=== PATIENT | female | born 1950 | race Hispanic/Latino ===

== ENCOUNTER 2016-12-24 21:13 | Emergency (ER) | payer BC, MEDICARE ==
[2016-12-24] MEDS ORDERED: traMADol HCl 50 MG TAB ONE (21:36)
[2016-12-24] MEDS ORDERED: cefTRIAXone\\ROCEPHIN 1 GM VIAL ONE (21:36)
[2016-12-24] MEDS ORDERED: Lidocaine 1% 20 ML MDV ONE (21:36)
[2016-12-24] MEDS ORDERED: Ondansetron ODT 4 MG TAB ONE (21:36)
== END 2016-12-24 22:14 | disposition home or self-care (01) ==
LOC: NAV ERS 21:13
DX: N39.0 Urinary tract infection, site not specified (principal); I10 Essential (primary) hypertension; E11.9 Type 2 diabetes mellitus without complications; Z87.891 Personal history of nicotine dependence; Z79.82 Long term (current) use of aspirin; Z79.84 Long term (current) use of oral hypoglycemic drugs; Z79.2 Long term (current) use of antibiotics; Z79.899 Other long term (current) drug therapy
CPT/HCPCS: 96372; J0696; J2001; Q0162

== ENCOUNTER 2019-08-21 21:51 | Emergency (ER) | payer BC, MEDICARE ==
[~2019-08-21 21:51] MED LIST: Iopamidol 370 76% 100 ML VIAL ONE
[2019-08-21] MEDS ORDERED: Sodium Chloride 0.9% 1,000 ML ONE ×2 (22:19→23:50)
[2019-08-21] MEDS ORDERED: Ondansetron PF 4 MG/2 ML Vial ONE (22:19)
[2019-08-21] MEDS ORDERED: Morphine 4 MG/ML VIAL ONE (22:19)
[2019-08-21 22:37] LABS: %Basophils 0.1 % (0.0-1.0); %Eosinophils 0.3 % (0.0-10.0); %Lymphocytes 9.5 % (21.0-51.0); %Monocytes 0.2 % (0.0-10.0); %Neutrophils 89.9 % (42.0-75.0); Hemoglobin 12.5 g/dL (12.0-16.0); Mean Corpuscular HGB CONC 32.6 g/dL (32.0-36.0); Mean Corpuscular Hemoglobin 29.5 pg (27.0-31.0); Mean Corpuscular Volume 90.3 fL (78.0-98.0); Mean Platelet Volume 6.8 fL (7.4-10.4); Platelet Count 216 thou/uL (130-400); Red Blood Cell (RBC) Count 4.24 mill/uL (4.20-5.40)
[2019-08-21 22:59] LABS: ALT (SGPT) 13 U/L (8-55); AST (SGOT) 14 U/L (5-34); Albumin 4.1 g/dL (3.4-4.8); Alkaline Phosphatase 65 U/L (40-110); Anion Gap 17 mmol/L (10-20); BUN (Urea Nitrogen) 59 mg/dL (9.8-20.1); Bilirubin, Total 0.5 mg/dL (0.2-1.2); CK (CPK) 24 U/L (29-168); Calc. Creatinine Clearance 0 mL/min (70-130); Calcium 10.2 mg/dL (7.8-10.44); Carbon Dioxide 16 mmol/L (23-31); Chloride 101 mmol/L (98-107); Estimated GFR-MDRD 26; Globulin 3.7 g/dL (2.4-3.5); Glucose 470 mg/dL (83-110); Lipase 46 U/L (8-78); Potassium 4.4 mmol/L (3.5-5.1); Protein, Total 7.8 g/dL (6.0-8.3); Sodium 130 mmol/L (136-145)
[2019-08-21 23:05] LABS: Bilirubin Negative (Negative); Blood, Urine Moderate (Negative); Clarity Slightly Cloudy (Clear); Glucose, Urine (Dipstick) 100 mg/dL (Negative); Leukocyte Moderate (Negative); Nitrite Negative (Negative); Protein, Urine (Dipstick) 30 mg/dL (Neg-Trace); RBC/HPF 21-50 HPF (0-3); Urobilinogen 0.2 mg/dL (Less than 2); WBC/HPF 21-50 HPF (0-3)
[2019-08-21 23:06] LABS: Bacteria/HPF 2+ HPF (None Seen)
[2019-08-21] MEDS ORDERED: cefTRIAXone\\ROCEPHIN 1 GM VIAL ONE (23:15)
[2019-08-21] MEDS ORDERED: Sodium Chloride 0.9% 100 ML ONE (23:15)
[2019-08-21] MEDS ORDERED: Insulin Regular 300 UNITS/3 ML VIAL ONE (23:44)
--- NOTE | 2019-08-21 23:59 | CT ---
EXAM: Abdomen and pelvic CT scan with contrast: HISTORY: Abdominal pain recent diagnosis of pancreatic cancer. COMPARISON: 06/11/2013 FINDINGS: The visualized lung bases are clear. Liver: Unremarkable. Gallbladder:Minimal heterogeneous nonspecific increased opacity in the gallbladder possibly gallstone s Pancreas:Small poorly defined pancreas with some dilatation of the distal common bile duct in the bod y and tail portion of the pancreas. Spleen:Unremarkable. Adrenal glands:Unremarkable. Kidneys:Status post left nephrectomy. Hydronephrosis of the right kidney with dilated ureter down to a ureterostomy with several small calcifications within the ureterostomy without evidence for obstruction. Extensive postop changes in the pelvis. Somewhat lobulated uterus with multiple calcific ations evidence for uterine fibroids, but without significant enlargement. No evidence for bowel obstruction. No CT evidence for acute appendicitis. Poor defined and nearly empty urinary bladder. There is some abnormal soft tissue density in the left side of the abdomen associated with the large left lateral abdominal wall hernia and extending from near the level of the inferior spleen tip caudally into the left side of the pelvis and down to the level of the uterus. I'm not certain as to the etiology of this. Conceivably this could represent omental or mesenteric metastasis. Conceivably this could represent some infectious or inflammatory changes of the omentum. IMPRESSION: Abnormal heterogeneous density in the left lateral abdomen beginning in the abdominal wall hernia and extending down in the pelvis of uncertain etiology, this could represent omental metastasis or some type of infectious or inflammatory change within the omentum. Hydronephrosis of the right kidney with associated ureterostomy and several nonobstructing calculi. Poorly defined pancreas with dilatation of the pancreatic duct in the body and tail. Extensive postoperative changes in the pelvis. Calcifications within the uterus probably intrauterine fibroids without significant enlargement. Stat us post left nephrectomy. Other findings as above.
== END 2019-08-22 02:37 | disposition short-term general hospital (02) ==
LOC: NAV ERS 21:51
DX: N39.0 Urinary tract infection, site not specified (principal); E86.0 Dehydration; E11.65 Type 2 diabetes mellitus with hyperglycemia; I10 Essential (primary) hypertension; Z87.891 Personal history of nicotine dependence; Z79.82 Long term (current) use of aspirin; Z79.899 Other long term (current) drug therapy; Z79.84 Long term (current) use of oral hypoglycemic drugs
CPT/HCPCS: 36415; 36416; 74177; 80053; 81003; 81015; 82550; 83605; 83690; 84484; 85025; 87040; 93005; 96361; 96374; 96375; J0696; J1815; J2270; J2405; J3490; J7050; Q9967

== ENCOUNTER 2019-09-14 23:40 | Emergency (ER) | payer BC, MEDICARE ==
[2019-09-15 00:23] LABS: #Eosinphils 0.1 thou/uL (0.0-0.7); #Lymphocytes 1.1 thou/uL (1.20-3.40); %Basophils 0.4 % (0.0-1.0); %Eosinophils 1.7 % (0.0-10.0); %Lymphocytes 21.6 % (21.0-51.0); %Monocytes 0.6 % (0.0-10.0); %Neutrophils 75.7 % (42.0-75.0); Hemoglobin 11.7 g/dL (12.0-16.0); Mean Corpuscular HGB CONC 32.8 g/dL (32.0-36.0); Mean Corpuscular Hemoglobin 30.3 pg (27.0-31.0); Mean Corpuscular Volume 92.6 fL (78.0-98.0); Mean Platelet Volume 7.7 fL (7.4-10.4); Platelet Count 193 thou/uL (130-400); Red Blood Cell (RBC) Count 3.87 mill/uL (4.20-5.40); White Blood Cell (WBC) Count 5.2 thou/uL (4.8-10.8)
[2019-09-15 00:27] LABS: Bilirubin Negative (Negative); Blood, Urine Moderate (Negative); Clarity Cloudy (Clear); Glucose, Urine (Dipstick) Negative (Negative); Leukocyte Large (Negative); Nitrite Negative (Negative); Protein, Urine (Dipstick) 30 mg/dL (Neg-Trace); Urobilinogen 0.2 mg/dL (Less than 2)
[2019-09-15] MEDS ORDERED: Ondansetron PF 4 MG/2 ML Vial ONE (00:28)
[2019-09-15] MEDS ORDERED: Sodium Chloride 0.9% 1,000 ML ONE (00:28)
[2019-09-15 00:29] LABS: Bacteria/HPF 4+ HPF (None Seen); Squamous Epithelial None Seen HPF (0-3); WBC/HPF Greater Than 50 HPF (0-3)
[2019-09-15 00:35] LABS: ALT (SGPT) 43 U/L (8-55); AST (SGOT) 57 U/L (5-34); Albumin 4.2 g/dL (3.4-4.8); Alkaline Phosphatase 69 U/L (40-110); Anion Gap 19 mmol/L (10-20); BUN (Urea Nitrogen) 33 mg/dL (9.8-20.1); Bilirubin, Total 0.6 mg/dL (0.2-1.2); Calc. Creatinine Clearance 0 mL/min (70-130); Calcium 10.1 mg/dL (7.8-10.44); Carbon Dioxide 21 mmol/L (23-31); Chloride 103 mmol/L (98-107); Estimated GFR-MDRD 34; Globulin 3.5 g/dL (2.4-3.5); Glucose 148 mg/dL (83-110); Potassium 4.1 mmol/L (3.5-5.1); Protein, Total 7.7 g/dL (6.0-8.3); Sodium 139 mmol/L (136-145)
== END 2019-09-15 01:10 | disposition home or self-care (01) ==
LOC: NAV ERS 23:40
DX: R53.1 Weakness (principal); R11.2 Nausea with vomiting, unspecified; E11.9 Type 2 diabetes mellitus without complications; I10 Essential (primary) hypertension; Z87.891 Personal history of nicotine dependence; Z79.899 Other long term (current) drug therapy
CPT/HCPCS: 80053; 81003; 81015; 84484; 85025; 87077; 87086; 87186; 93005; J2405; J7050

== ENCOUNTER 2019-09-19 17:15 | Emergency (ER) | payer BC, MEDICARE ==
[2019-09-19] MEDS ORDERED: Sodium Chloride 0.9% 1,000 ML ONE ×2 (18:06→19:42)
[2019-09-19] MEDS ORDERED: Acetaminophen 325 MG TAB ONE (18:06)
[2019-09-19] MEDS ORDERED: Ondansetron PF 4 MG/2 ML Vial ONE (18:15)
[2019-09-19 18:48] LABS: Bilirubin Negative (Negative); Blood, Urine Moderate (Negative); Clarity Clear (Clear); Glucose, Urine (Dipstick) 100 mg/dL (Negative); Leukocyte Large (Negative); Nitrite Negative (Negative); Protein, Urine (Dipstick) 100 mg/dL (Neg-Trace); Urobilinogen 0.2 mg/dL (Less than 2)
--- NOTE | 2019-09-19 19:08 | CT ---
EXAM: CT Abdomen Pelvis WO Con PROVIDED CLINICAL HISTORY: Vomiting and diarrhea. COMPARISON: 08/21/2019. FINDINGS: Lack of intravenous contrast limits sensitivity for evaluation of the parenchymal organ as well as li mits evaluation of vascular structures. Calcified granuloma is seen at the lateral right lung base. Lung bases are otherwise clear. Vascular calcifications are again seen abdominal aorta and involving the iliac arteries. Calcified granulomata are seen in the liver and spleen. Postsurgical changes related to left nephrectomy are noted. Again noted is right hydronephrosis uncha nged from the prior exam with ureter dilated to the level of the ureterostomy. A few calcifications are seen along the wall of the most proximal ureterostomy unchanged from prior study, this could be r elated to postsurgical changes as opposed to layering calculi; although, this is a possibility. The pancreas and bilateral adrenal glands demonstrate a grossly normal nonenhanced CT appearance. Calcifications are seen in the uterus suggesting calcified uterine fibroids. The urinary bladder is not visualized on this exam and probably surgically absent. There are postsurgical changes in the region of the rectosigmoid junction with anastomosis in this re gion. A large hernia defect is again seen in the left posterolateral abdominal wall with loops of small bowel extending into the hernia defect. There is no evidence of bowel obstruction, and the isaac ia defect is large in size. Again noted is the area of abnormal soft tissue density and Stranding in the superior aspect of the hernia defect which extends inferiorly and medially into the pelvis. This is not significantly changed from the prior exam. The exact etiology is uncertain. Omental metastatic disease remains a possibility. This could also potentially be related to inflammat ory or infected process. No other interval change when compared to the prior exam. IMPRESSION: 1. Stable heterogeneous and soft tissue density in the left lateral abdomen which is again seen in th e superior aspect of the large left posterolateral abdominal wall hernia and extending into the pelvis. Again the exact etiology is uncertain. Findings again could potentially be related to omental metastatic disease versus an infectious or inflammatory process. 2. Stable right hydronephrosis and hydroureter with stable dilatation to the level of the urostomy. 3. The pancreas is not well-defined on this examination due to atrophy and lack of enhancement. There was pancreatic ductal dilatation on the prior exam which is less well delineated on the current study. 4. Additional incidental findings as described above.
--- NOTE | 2019-09-19 19:08 | RAD ---
RADIOGRAPH CHEST 1 VIEW: DATE: 09/19/2019 HISTORY: 69-year-old female with cough. FINDINGS: There are no airspace densities, pulmonary edema, pneumothorax, or cardiomegaly. The lateral costophr enic angles are sharp. There is a right IJ implantable vascular access port with distal tip overlying SVC. There are several small and tiny calcified granulomata in the right lung. IMPRESSION: 1. No acute cardiopulmonary findings. 2. Right-sided implantable vascular access port. 3. Evidence for right-sided old (inactive) pulmonary granulomatous disease.
[2019-09-19 19:18] LABS: Bacteria/HPF 3+ HPF (None Seen); Squamous Epithelial 0-3 HPF (0-3); WBC/HPF Greater Than 50 HPF (0-3)
[2019-09-19] MEDS ORDERED: Piperacillin/Tazobactam 4.5 GM VIAL ONE (19:42)
[2019-09-19] MEDS ORDERED: Sodium Chloride 0.9% 100 ML ONE (19:42)
[2019-09-19 19:53] LABS: ALT (SGPT) 20 U/L (8-55); AST (SGOT) 16 U/L (5-34); Albumin 3.7 g/dL (3.4-4.8); Alkaline Phosphatase 62 U/L (40-110); Anion Gap 15 mmol/L (10-20); BUN (Urea Nitrogen) 19 mg/dL (9.8-20.1); Bilirubin, Total 0.3 mg/dL (0.2-1.2); Calc. Creatinine Clearance 0 mL/min (70-130); Carbon Dioxide 20 mmol/L (23-31); Chloride 108 mmol/L (98-107); Estimated GFR-MDRD 41; Globulin 3.1 g/dL (2.4-3.5); Glucose 200 mg/dL (83-110); Potassium 3.8 mmol/L (3.5-5.1); Protein, Total 6.8 g/dL (6.0-8.3); Sodium 139 mmol/L (136-145)
[2019-09-19 19:55] LABS: Anisocytosis SLIGHT = 6-15 cells (100X) (0-5/hpf); Band 4 % (5-11); Eosinophils 3 % (0-10); Hemoglobin 10.2 g/dL (12.0-16.0); Hypochromia SLIGHT = 6-15 cells (100X) (0-5/hpf); Lymphocytes 17 % (21-51); MDiff Complete? YES; Mean Corpuscular HGB CONC 33.9 g/dL (32.0-36.0); Mean Corpuscular Hemoglobin 30.4 pg (27.0-31.0); Mean Corpuscular Volume 89.8 fL (78.0-98.0); Mean Platelet Volume 9.8 fL (7.4-10.4); Microcytosis SLIGHT = 6-15 cells (100X) (0-5/hpf); Monocytes 3 % (0-10); Neutrophil 73 % (42-75); Platelet Count 115 thou/uL (130-400); Platelet Morphology Comment Appears Adequate; RBC Distribution Width 11.9 % (11.5-14.5); Red Blood Cell (RBC) Count 3.33 mill/uL (4.20-5.40); White Blood Cell (WBC) Count 4.5 thou/uL (4.8-10.8)
[2019-09-19] MEDS ORDERED: Vancomycin HCl 500 MG VIAL ONE (20:33)
[2019-09-19] MEDS ORDERED: Vancomycin HCl 750 MG VIAL ONE (20:33)
[2019-09-19] MEDS ORDERED: Sodium Chloride 0.9% 500 ML ONE (20:33)
== END 2019-09-19 20:55 | disposition short-term general hospital (02) ==
LOC: NAV ERS 17:15
DX: N12 Tubulo-interstitial nephritis, not specified as acute or chronic (principal); R19.7 Diarrhea, unspecified; R05 Cough; E11.9 Type 2 diabetes mellitus without complications; I10 Essential (primary) hypertension; Z87.891 Personal history of nicotine dependence; Z79.899 Other long term (current) drug therapy; Z79.84 Long term (current) use of oral hypoglycemic drugs
CPT/HCPCS: 71045; 74176; 80053; 81003; 81015; 83605; 85025; 87040; 87077; 87086; 87186; 87804; 93005; 96361; 96365; 96375; J2405; J2543; J3370; J3490; J7050

== ENCOUNTER 2020-04-04 16:16 | Inpatient (IN) | payer MEDICARE ==
[2020-04-04 16:39] VITALS: BMI 25.8
[2020-04-04] MEDS ORDERED: Senokot S 8.6-50 MG TAB PO PRN (17:54)
[2020-04-04] MEDS ORDERED: Ondansetron ODT 4 MG TAB PO PRN (17:54)
[2020-04-04] MEDS ORDERED: Dextrose 50% Abboject 50 ML SYRINGE SLOW IVP PRN (18:24)
[2020-04-04] MEDS: traMADol HCl 50 MG TAB PO PRN (18:41)
[2020-04-04] MEDS ORDERED: INSULIN GLARGINE HUM REC ANLOG 5 UNIT SC SCH (21:00)
[2020-04-04] MEDS: Acetaminophen 500 MG TAB PO PRN (22:11)
[2020-04-04] MEDS: Lidocaine Patch Removal TOP SCH (22:59)
[2020-04-05] MEDS ORDERED: Lantus 1000 UNITS/10 ML VIAL SC SCH (00:30)
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
[2020-04-05] MEDS: traMADol HCl 50 MG TAB PO PRN ×2 (05:09→18:02)
[2020-04-05 06:15] LABS: #Basophils 0.1 thou/uL (0.0-0.2); #Eosinphils 0.2 thou/uL (0.0-0.7); #Lymphocytes 1.2 thou/uL (1.20-3.40); #Monocytes 0.7 thou/uL (0.11-0.59); #Neutrophils 4.4 thou/uL (1.40-6.50); %Basophils 1.6 % (0.0-1.0); %Eosinophils 2.3 % (0.0-10.0); %Monocytes 11.3 % (0.0-10.0); %Neutrophils 66.8 % (42.0-75.0); Hemoglobin 9.5 g/dL (12.0-16.0); Mean Corpuscular HGB CONC 32.1 g/dL (32.0-36.0); Mean Corpuscular Hemoglobin 34.7 pg (27.0-31.0); Mean Platelet Volume 7.1 fL (7.4-10.4); Platelet Count 242 thou/uL (130-400); RBC Distribution Width 19.5 % (11.5-14.5); Red Blood Cell (RBC) Count 2.73 mill/uL (4.20-5.40); White Blood Cell (WBC) Count 6.6 thou/uL (4.8-10.8)
[2020-04-05 06:16] LABS: Anion Gap 12 mmol/L (10-20); BUN (Urea Nitrogen) 27 mg/dL (9.8-20.1); Calc. Creatinine Clearance 49 mL/min (70-130); Calcium 9.1 mg/dL (7.8-10.44); Carbon Dioxide 17 mmol/L (23-31); Chloride 111 mmol/L (98-107); Estimated GFR-MDRD 53; Glucose 168 mg/dL (83-110); Potassium 4.4 mmol/L (3.5-5.1); Sodium 136 mmol/L (136-145)
[2020-04-05 06:23] LABS: Anisocytosis SLIGHT = 6-15 cells (100X) (0-5/hpf); MDiff Complete? YES; Macrocytosis SLIGHT = 6-15 cells (100X) (0-5/hpf); Platelet Morphology Comment Appears Adequate
[2020-04-05] MEDS: Amlodipine 5 MG TAB PO SCH (08:48)
[2020-04-05] MEDS: Atorvastatin Calcium 20 MG TAB PO SCH (08:49)
[2020-04-05] MEDS: Aspirin 81 mg Enteric Coated Tablet PO SCH (08:49)
[2020-04-05] MEDS: Famotidine 20 MG TAB PO SCH (08:49)
[2020-04-05] MEDS: Lidocaine 5% Patch TD SCH (08:50)
[2020-04-05] MEDS: Acetaminophen 500 MG TAB PO PRN (08:50)
[2020-04-05] MEDS ORDERED: Bisacodyl 10 MG SUPP PR SCH (09:00)
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
[2020-04-05] MEDS ORDERED: Bisacodyl 5 MG TAB PO SCH (15:15)
[2020-04-05] MEDS: guaiFENesin ER 600 MG TAB PO PRN (18:03)
[2020-04-05] MEDS: Valsartan 80 MG TAB PO SCH (20:53)
[2020-04-05] MEDS: Lantus 1000 UNITS/10 ML VIAL SC SCH (20:54)
[2020-04-05] MEDS: Lidocaine Patch Removal TOP SCH (22:41)
[2020-04-06] MEDS: traMADol HCl 50 MG TAB PO PRN ×2 (02:04→13:33)
[2020-04-06] MEDS: Amlodipine 5 MG TAB PO SCH (08:38)
[2020-04-06] MEDS: Atorvastatin Calcium 20 MG TAB PO SCH (08:39)
[2020-04-06] MEDS: Famotidine 20 MG TAB PO SCH (08:39)
[2020-04-06] MEDS: Aspirin 81 mg Enteric Coated Tablet PO SCH (08:39)
[2020-04-06] MEDS: Bisacodyl 5 MG TAB PO SCH (08:39)
[2020-04-06] MEDS: Lidocaine 5% Patch TD SCH (08:39)
[2020-04-06] MEDS: Acetaminophen 500 MG TAB PO PRN ×2 (08:40→21:09)
[2020-04-06] MEDS: guaiFENesin ER 600 MG TAB PO PRN (08:40)
[2020-04-06] MEDS ORDERED: Milk Of Magnesia 30 ML UDCUP PO PRN (10:02)
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
[2020-04-06] MEDS: Valsartan 80 MG TAB PO SCH (21:05)
[2020-04-06] MEDS: Lantus 1000 UNITS/10 ML VIAL SC SCH (21:06)
[2020-04-06] MEDS: Lidocaine Patch Removal TOP SCH (21:07)
[2020-04-07] MEDS: Polyethylene Glycol 3350 17 GM Packet PO PRN (04:41)
[2020-04-07] MEDS: Acetaminophen 500 MG TAB PO PRN ×3 (04:41→21:26)
[2020-04-07] MEDS: Bisacodyl 5 MG TAB PO SCH (08:49)
[2020-04-07] MEDS: Famotidine 20 MG TAB PO SCH (08:49)
[2020-04-07] MEDS: Amlodipine 5 MG TAB PO SCH (08:49)
[2020-04-07] MEDS: Atorvastatin Calcium 20 MG TAB PO SCH (08:49)
[2020-04-07] MEDS: Aspirin 81 mg Enteric Coated Tablet PO SCH (08:49)
[2020-04-07] MEDS: Lidocaine 5% Patch TD SCH (08:50)
[2020-04-07] MEDS: traMADol HCl 50 MG TAB PO PRN (09:29)
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
[2020-04-07] MEDS: traZODone HCl 50 MG TAB PO PRN (21:26)
[2020-04-07] MEDS: Lantus 1000 UNITS/10 ML VIAL SC SCH (21:30)
[2020-04-07] MEDS: Lidocaine Patch Removal TOP SCH (21:31)
[2020-04-07] MEDS: Valsartan 80 MG TAB PO SCH (23:06)
[2020-04-08] MEDS: traMADol HCl 50 MG TAB PO PRN ×2 (05:13→14:04)
[2020-04-08] MEDS: Bisacodyl 5 MG TAB PO SCH (08:40)
[2020-04-08] MEDS: Aspirin 81 mg Enteric Coated Tablet PO SCH (08:41)
[2020-04-08] MEDS: Famotidine 20 MG TAB PO SCH (08:41)
[2020-04-08] MEDS: Amlodipine 5 MG TAB PO SCH (08:41)
[2020-04-08] MEDS: Atorvastatin Calcium 20 MG TAB PO SCH (08:41)
[2020-04-08] MEDS: Lidocaine 5% Patch TD SCH (08:41)
[2020-04-08] MEDS: Valsartan 80 MG TAB PO SCH (20:03)
[2020-04-08] MEDS: Lidocaine Patch Removal TOP SCH (20:03)
[2020-04-08] MEDS: Lantus 1000 UNITS/10 ML VIAL SC SCH (20:04)
[2020-04-09] MEDS: traMADol HCl 50 MG TAB PO PRN ×3 (00:36→20:15)
[2020-04-09] MEDS: Polyethylene Glycol 3350 17 GM Packet PO PRN (08:55)
[2020-04-09] MEDS: Aspirin 81 mg Enteric Coated Tablet PO SCH (08:57)
[2020-04-09] MEDS: Bisacodyl 5 MG TAB PO SCH (08:58)
[2020-04-09] MEDS: Famotidine 20 MG TAB PO SCH (08:58)
[2020-04-09] MEDS: Amlodipine 5 MG TAB PO SCH (08:58)
[2020-04-09] MEDS: Atorvastatin Calcium 20 MG TAB PO SCH (08:58)
[2020-04-09] MEDS: Lidocaine 5% Patch TD SCH (08:59)
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
[2020-04-09] MEDS: Valsartan 80 MG TAB PO SCH (20:15)
[2020-04-09] MEDS: Lidocaine Patch Removal TOP SCH (20:16)
[2020-04-09] MEDS: Lantus 1000 UNITS/10 ML VIAL SC SCH (20:16)
[2020-04-10] MEDS: traZODone HCl 50 MG TAB PO PRN ×2 (00:47→20:57)
[2020-04-10] MEDS: Amlodipine 5 MG TAB PO SCH (08:56)
[2020-04-10] MEDS: Bisacodyl 5 MG TAB PO SCH (08:57)
[2020-04-10] MEDS: Famotidine 20 MG TAB PO SCH (08:57)
[2020-04-10] MEDS: Lidocaine 5% Patch TD SCH (08:57)
[2020-04-10] MEDS: Aspirin 81 mg Enteric Coated Tablet PO SCH (08:57)
[2020-04-10] MEDS: traMADol HCl 50 MG TAB PO PRN (08:57)
[2020-04-10] MEDS: Atorvastatin Calcium 20 MG TAB PO SCH (08:57)
[2020-04-10] MEDS: Acetaminophen 500 MG TAB PO PRN ×2 (10:52→20:57)
[2020-04-10] MEDS: Valsartan 80 MG TAB PO SCH (20:57)
[2020-04-10] MEDS: Lantus 1000 UNITS/10 ML VIAL SC SCH (20:58)
[2020-04-10] MEDS: Lidocaine Patch Removal TOP SCH (22:00)
[2020-04-11 05:44] LABS: #Basophils 0.1 thou/uL (0.0-0.2); #Eosinphils 0.2 thou/uL (0.0-0.7); #Lymphocytes 1.4 thou/uL (1.20-3.40); #Monocytes 0.7 thou/uL (0.11-0.59); #Neutrophils 5.1 thou/uL (1.40-6.50); %Basophils 1.4 % (0.0-1.0); %Eosinophils 2.5 % (0.0-10.0); %Lymphocytes 18.3 % (21.0-51.0); %Monocytes 9.7 % (0.0-10.0); %Neutrophils 68.2 % (42.0-75.0); Hemoglobin 9.8 g/dL (12.0-16.0); MDiff Complete? YES; Macrocytosis MODERATE=16-30 cells (100X) (0-5/hpf); Mean Corpuscular HGB CONC 30.5 g/dL (32.0-36.0); Mean Corpuscular Hemoglobin 33.7 pg (27.0-31.0); Mean Platelet Volume 7.6 fL (7.4-10.4); Platelet Count 227 thou/uL (130-400); Platelet Morphology Comment Appears Adequate; RBC Distribution Width 17.1 % (11.5-14.5); White Blood Cell (WBC) Count 7.5 thou/uL (4.8-10.8)
[2020-04-11 05:46] LABS: ALT (SGPT) 14 U/L (8-55); AST (SGOT) 18 U/L (5-34); Albumin 3.4 g/dL (3.4-4.8); Alkaline Phosphatase 143 U/L (40-110); Anion Gap 12 mmol/L (10-20); BUN (Urea Nitrogen) 37 mg/dL (9.8-20.1); Bilirubin, Total 0.3 mg/dL (0.2-1.2); Calc. Creatinine Clearance 38 mL/min (70-130); Calcium 9.6 mg/dL (7.8-10.44); Carbon Dioxide 16 mmol/L (23-31); Chloride 114 mmol/L (98-107); Estimated GFR-MDRD 39; Globulin 3.9 g/dL (2.4-3.5); Glucose 177 mg/dL (83-110); Potassium 5.3 mmol/L (3.5-5.1); Protein, Total 7.3 g/dL (6.0-8.3); Sodium 137 mmol/L (136-145)
[2020-04-11] MEDS: Acetaminophen 500 MG TAB PO PRN ×3 (06:33→20:51)
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
[2020-04-11] MEDS: Amlodipine 5 MG TAB PO SCH (08:53)
[2020-04-11] MEDS: Aspirin 81 mg Enteric Coated Tablet PO SCH (08:53)
[2020-04-11] MEDS: Bisacodyl 5 MG TAB PO SCH (08:54)
[2020-04-11] MEDS: Atorvastatin Calcium 20 MG TAB PO SCH (08:54)
[2020-04-11] MEDS: Famotidine 20 MG TAB PO SCH (08:55)
[2020-04-11] MEDS: Lidocaine 5% Patch TD SCH (08:55)
[2020-04-11] MEDS: traMADol HCl 50 MG TAB PO PRN (08:57)
[2020-04-11] MEDS ORDERED: Ondansetron ODT 4 MG TAB PO PRN (09:00)
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
[2020-04-11] MEDS: Valsartan 80 MG TAB PO SCH (20:50)
[2020-04-11] MEDS: traZODone HCl 50 MG TAB PO PRN (20:50)
[2020-04-11] MEDS: Lantus 1000 UNITS/10 ML VIAL SC SCH (20:52)
[2020-04-11] MEDS: Lidocaine Patch Removal TOP SCH (22:13)
[2020-04-12] MEDS: Acetaminophen 500 MG TAB PO PRN ×3 (03:19→20:24)
[2020-04-12 05:36] LABS: Anion Gap 12 mmol/L (10-20); BUN (Urea Nitrogen) 35 mg/dL (9.8-20.1); Calc. Creatinine Clearance 37 mL/min (70-130); Calcium 9.5 mg/dL (7.8-10.44); Carbon Dioxide 17 mmol/L (23-31); Chloride 114 mmol/L (98-107); Estimated GFR-MDRD 38; Glucose 169 mg/dL (83-110); Potassium 4.9 mmol/L (3.5-5.1); Sodium 138 mmol/L (136-145)
[2020-04-12] MEDS: Aspirin 81 mg Enteric Coated Tablet PO SCH (08:36)
[2020-04-12] MEDS: traMADol HCl 50 MG TAB PO PRN ×2 (08:36→20:25)
[2020-04-12] MEDS: Bisacodyl 5 MG TAB PO SCH (08:36)
[2020-04-12] MEDS: Lidocaine 5% Patch TD SCH (08:36)
[2020-04-12] MEDS: Amlodipine 5 MG TAB PO SCH (08:36)
[2020-04-12] MEDS: Atorvastatin Calcium 20 MG TAB PO SCH (08:36)
[2020-04-12] MEDS: Famotidine 20 MG TAB PO SCH (08:37)
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
[2020-04-12] MEDS: traZODone HCl 50 MG TAB PO PRN (20:24)
[2020-04-12] MEDS: Valsartan 80 MG TAB PO SCH (20:24)
[2020-04-12] MEDS: Lantus 1000 UNITS/10 ML VIAL SC SCH (20:25)
[2020-04-13] MEDS: Lidocaine Patch Removal TOP SCH ×2 (03:44→21:02)
[2020-04-13 06:02] LABS: Anion Gap 13 mmol/L (10-20); BUN (Urea Nitrogen) 35 mg/dL (9.8-20.1); Calc. Creatinine Clearance 37 mL/min (70-130); Calcium 9.7 mg/dL (7.8-10.44); Carbon Dioxide 16 mmol/L (23-31); Chloride 113 mmol/L (98-107); Estimated GFR-MDRD 39; Glucose 157 mg/dL (83-110); Potassium 4.7 mmol/L (3.5-5.1); Sodium 137 mmol/L (136-145)
[2020-04-13] MEDS: Lidocaine 5% Patch TD SCH (08:37)
[2020-04-13] MEDS: Famotidine 20 MG TAB PO SCH (08:38)
[2020-04-13] MEDS: traMADol HCl 50 MG TAB PO PRN ×2 (08:38→18:14)
[2020-04-13] MEDS: Atorvastatin Calcium 20 MG TAB PO SCH (08:38)
[2020-04-13] MEDS: Bisacodyl 5 MG TAB PO SCH (08:38)
[2020-04-13] MEDS: Aspirin 81 mg Enteric Coated Tablet PO SCH (08:38)
[2020-04-13] MEDS: Amlodipine 5 MG TAB PO SCH (08:38)
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
--- NOTE | 2020-04-13 13:58 | RAD ---
RIGHT SHOULDER 3 VIEWS: Date: 04/13/2020 HISTORY: Right shoulder pain. FINDINGS/IMPRESSION: There are degenerative changes in the acromioclavicular joint. There is narrowing of the acromiohumer al space. No acute fracture, dislocation, or bony destruction seen. There are calcified granulomas in the right lung. A right-sided Port-A-Cath is present. POS: [facility]
[2020-04-13] MEDS: Lantus 1000 UNITS/10 ML VIAL SC SCH (21:01)
[2020-04-13] MEDS: Valsartan 80 MG TAB PO SCH (21:02)
[2020-04-13] MEDS: traZODone HCl 50 MG TAB PO PRN (22:15)
[2020-04-14] MEDS: traMADol HCl 50 MG TAB PO PRN ×2 (02:03→12:49)
[2020-04-14] MEDS: Acetaminophen 500 MG TAB PO PRN (05:36)
[2020-04-14 05:44] LABS: Anion Gap 12 mmol/L (10-20); BUN (Urea Nitrogen) 30 mg/dL (9.8-20.1); Calc. Creatinine Clearance 41 mL/min (70-130); Calcium 9.7 mg/dL (7.8-10.44); Carbon Dioxide 16 mmol/L (23-31); Chloride 114 mmol/L (98-107); Estimated GFR-MDRD 43; Glucose 117 mg/dL (83-110); Potassium 4.6 mmol/L (3.5-5.1); Sodium 137 mmol/L (136-145)
[2020-04-14 07:56] VITALS: BP 130/64; TEMP 96.4
[2020-04-14] MEDS: Lidocaine 5% Patch TD SCH (08:54)
[2020-04-14] MEDS: Bisacodyl 5 MG TAB PO SCH (08:54)
[2020-04-14] MEDS: Amlodipine 5 MG TAB PO SCH (08:54)
[2020-04-14] MEDS: Aspirin 81 mg Enteric Coated Tablet PO SCH (08:54)
[2020-04-14] MEDS: Famotidine 20 MG TAB PO SCH (08:55)
[2020-04-14] MEDS: Atorvastatin Calcium 20 MG TAB PO SCH (08:55)
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
== END 2020-04-14 17:40 | disposition home health service (06) | DRG 206 ==
LOC: NAV ACUTE 16:16
PROVIDERS: ADMIT Family Medicine; ATTEND Family Medicine
DX: S22.32XA Fracture of one rib, left side, initial encounter for closed fracture (principal); S32.038A Other fracture of third lumbar vertebra, initial encounter for closed fracture; S32.048A Other fracture of fourth lumbar vertebra, initial encounter for closed fracture; C25.9 Malignant neoplasm of pancreas, unspecified; S36.112A Contusion of liver, initial encounter; N17.9 Acute kidney failure, unspecified; F32.9 Major depressive disorder, single episode, unspecified; S22.31XA Fracture of one rib, right side, initial encounter for closed fracture; G47.33 Obstructive sleep apnea (adult) (pediatric); N18.3 Chronic kidney disease, stage 3 (moderate); E11.22 Type 2 diabetes mellitus with diabetic chronic kidney disease; I12.9 Hypertensive chronic kidney disease with stage 1 through stage 4 chronic kidney disease, or unspecified chronic kidney disease; R53.81 Other malaise; D63.8 Anemia in other chronic diseases classified elsewhere; G47.00 Insomnia, unspecified; E86.0 Dehydration; M19.011 Primary osteoarthritis, right shoulder; K59.00 Constipation, unspecified; E87.5 Hyperkalemia; Z90.49 Acquired absence of other specified parts of digestive tract; Z90.6 Acquired absence of other parts of urinary tract; Z98.51 Tubal ligation status; Z79.82 Long term (current) use of aspirin; Z79.899 Other long term (current) drug therapy; V47.9XXA Unspecified car occupant injured in collision with fixed or stationary object in traffic accident, initial encounter
CPT/HCPCS: 36415; 36416; 80048; 80053; 85025; J1815

== ENCOUNTER 2020-05-25 14:12 | Outpatient (CLI) | payer MEDICARE ==
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
== END 2020-05-25 14:13 | disposition home or self-care (01) ==
LOC: NAV RAD 14:12
PROVIDERS: ATTEND Family Medicine
DX: S32.038A Other fracture of third lumbar vertebra, initial encounter for closed fracture (principal)
CPT/HCPCS: 72100

== ENCOUNTER 2020-06-17 20:01 | Emergency (ER) | payer MEDICARE ==
[2020-06-17 21:03] LABS: #Basophils 0.1 thou/uL (0.0-0.2); #Eosinphils 0.1 thou/uL (0.0-0.7); #Lymphocytes 1.4 thou/uL (1.20-3.40); #Monocytes 0.5 thou/uL (0.11-0.59); #Neutrophils 7.3 thou/uL (1.40-6.50); %Basophils 0.6 % (0.0-1.0); %Eosinophils 0.7 % (0.0-10.0); %Lymphocytes 14.7 % (21.0-51.0); %Monocytes 5.8 % (0.0-10.0); %Neutrophils 78.3 % (42.0-75.0); Hemoglobin 11.8 g/dL (12.0-16.0); Mean Corpuscular HGB CONC 31.2 g/dL (32.0-36.0); Mean Corpuscular Hemoglobin 31.1 pg (27.0-31.0); Mean Corpuscular Volume 99.7 fL (78.0-98.0); Mean Platelet Volume 7.7 fL (7.4-10.4); Platelet Count 278 thou/uL (130-400); RBC Distribution Width 11.7 % (11.5-14.5); White Blood Cell (WBC) Count 9.4 thou/uL (4.8-10.8)
[2020-06-17] MEDS ORDERED: Sodium Chloride 0.9% 1,000 ML ONE ×2 (21:07→23:01)
[2020-06-17] MEDS ORDERED: Ondansetron PF 4 MG/2 ML Vial ONE (21:07)
[2020-06-17] MEDS ORDERED: Fentanyl 100 MCG/2 ML VIAL ONE ×2 (21:19→23:42)
[2020-06-17 21:21] LABS: ALT (SGPT) 9 U/L (8-55); AST (SGOT) 17 U/L (5-34); Albumin 3.9 g/dL (3.4-4.8); Alkaline Phosphatase 120 U/L (40-110); Anion Gap 19 mmol/L (10-20); BUN (Urea Nitrogen) 64 mg/dL (9.8-20.1); Bilirubin, Total 0.4 mg/dL (0.2-1.2); Calc. Creatinine Clearance 0 mL/min (70-130); Calcium 9.9 mg/dL (7.8-10.44); Carbon Dioxide 11 mmol/L (23-31); Chloride 108 mmol/L (98-107); Estimated GFR-MDRD 19; Globulin 4.7 g/dL (2.4-3.5); Glucose 126 mg/dL (83-110); Protein, Total 8.6 g/dL (6.0-8.3); Sodium 133 mmol/L (136-145)
[2020-06-17 21:30] LABS: Bilirubin Small (Negative); Blood, Urine Trace (Negative); Clarity Slightly Cloudy (Clear); Glucose, Urine (Dipstick) Negative (Negative); Ketone, Urine Negative (Negative); Leukocyte Small (Negative); Nitrite Negative (Negative); Protein, Urine (Dipstick) 30 mg/dL (Neg-Trace); Specific Gravity, Urine 1.015 (1.005-1.030); Urobilinogen 0.2 mg/dL (Less than 2)
[2020-06-17 21:32] LABS: Bacteria/HPF 2+ HPF (None Seen); RBC/HPF 0-3 HPF (0-3); Squamous Epithelial 0-3 HPF (0-3)
--- NOTE | 2020-06-17 22:37 | CT ---
EXAM: CT Abdomen Pelvis WO Con PROVIDED CLINICAL HISTORY: Lower abdominal pain, nausea, and vomiting. COMPARISON: 09/19/2019 FINDINGS: Lack of intravenous contrast limits sensitivity for evaluation of the parenchymal organs and limits e valuation of vascular structures. Calcified granuloma is again seen at the right lung base with pleural-based nodular density at the ri ght lung base which may potentially be related to volume loss. Vascular calcifications are seen in the abdominal aorta and involving the iliac arteries. Calcified granulomata are seen in the liver and spleen. Post surgical changes related to left nephrectomy are again seen. The right-sided hydronephrosis is no longer identified. Ureterostomy right lower quadrant is again se en. The pancreas and bilateral adrenal glands demonstrate a grossly normal nonenhanced CT appearance. Calcification uterus related to calcified uterine fibroids is again present. Postsurgical changes at the level of the rectosigmoid junction are again seen with anastomosis presen t. Previously described large hernia defect involving the left posterolateral abdominal wall/flank are a gain seen with loops of small bowel and colon extending through this hernia defect. The left lateral abdomen is partially obscured due to positioning of the patient adjacent gantry limiting adeq uate evaluation. Multiple dilated loops of fluid-filled small bowel are seen measuring up to 3.4 cm in diameter. More distal loops of small bowel are normal in caliber. Exact transition point is unable to be evaluated on this examination without GI and IV contrast. The soft tissue density and stranding in the region of the hernia defect on the left are again seen a nd stable compared to prior exam. While omental metastatic disease or inflammatory process could not be entirely excluded, findings have not significantly changed or progressed from the prior study. This could be related to scarring. IMPRESSION: 1. Left posterolateral abdominal wall defect which contains loops of small bowel and the colon. 2. Evidence of a small bowel obstruction. The exact transition point is not visualized and the exact etiology for the bowel obstruction is unable to be determined based on this study. Portion of the left lateral abdominal wall and loops of bowel laterally within the abdomen are obscured due to patie nt positioning. 3. Postoperative changes related to left nephrectomy. 4. Area of an soft tissue density and stranding left aspect of the abdomen is again seen and similar to prior study. Exact etiology for this irregular soft tissue density and stranding is uncertain. While metastatic disease or inflammatory process is a possibility, this has not significantly changed when compared to prior exams, and findings could be related to scarring.
[2020-06-17] MEDS ORDERED: Lidocaine Viscous Sol 2% 15 ml UD Cup ONE (23:38)
== END 2020-06-18 00:09 | disposition short-term general hospital (02) ==
LOC: NAV ERS 20:01
DX: K56.609 Unspecified intestinal obstruction, unspecified as to partial versus complete obstruction (principal); E86.9 Volume depletion, unspecified; N28.9 Disorder of kidney and ureter, unspecified; E11.9 Type 2 diabetes mellitus without complications; I10 Essential (primary) hypertension; Z87.891 Personal history of nicotine dependence; Z79.4 Long term (current) use of insulin; Z79.899 Other long term (current) drug therapy
CPT/HCPCS: 74176; 80053; 81003; 81015; 83605; 83690; 85025; 96361; 96374; 96375; 96376; J2405; J3010; J7050